=== PATIENT | female | born 1980 | race Caucasian/White ===

== ENCOUNTER 2017-02-25 19:14 | Emergency (ER) | payer OTHER ==
[2017-02-25] MEDS: ONDANSETRON 4 MG INJ IV (22:42)
[2017-02-25] MEDS: SOD CHLORIDE 0.9% 1,000 ML IV (22:42)
[2017-02-25 22:53] LABS: ADD MAN DIFF? NO
[2017-02-25 22:59] LABS: BASOPHILS % 0.3 % (0.0-2.0); EOSINOPHILS # 0.1 10^3/ul (0.0-0.5); EOSINOPHILS % 1.3 % (0.0-7.0); HEMATOCRIT 35.3 % (37.0-47.0); HEMOGLOBIN 11.7 g/dl (12.0-16.0); LYMPHOCYTES # 3.5 10^3/ul (0.8-2.9); LYMPHOCYTES % 36.5 % (15.0-51.0); MEAN CORPUSCULAR HEMOGLOBIN 28.7 pg (29.0-33.0); MEAN CORPUSCULAR HGB CONC 33.1 g/dl (32.0-37.0); MEAN CORPUSCULAR VOLUME 86.7 fl (82.0-101.0); MEAN PLATELET VOLUME 11.6 fl (7.4-10.4); MONOCYTE # 0.6 10^3/ul (0.3-0.9); MONOCYTES % 5.8 % (0.0-11.0); NEUTROPHIL # 5.3 10^3/ul (1.6-7.5); NEUTROPHILS % 55.9 % (39.0-77.0); PLATELET COUNT 265 10^3/UL (140-415); RED BLOOD COUNT 4.07 10^6/ul (4.20-5.40); RED CELL DISTRIBUTION WIDTH 13.5 % (11.5-14.5)
[2017-02-25 22:59] LABS: WHITE BLOOD COUNT 9.5 10^3/ul (4.8-10.8)
[2017-02-25 23:05] LABS: ADD UMIC NO; UR ASCORBIC ACID 40 mg/dL (NEGATIVE); UR BACTERIA FEW /HPF (NONE SEEN); UR BILIRUBIN (Dip) NEGATIVE (NEGATIVE); UR BLOOD (Dip) NEGATIVE (NEGATIVE); UR CLARITY SLIGHTLY CLOUDY (CLEAR); UR COLOR YELLOW (YELLOW); UR GLUCOSE (Dip) NEGATIVE (NEGATIVE); UR KETONES (Dip) NEGATIVE (NEGATIVE); UR LEUKOCYTE ESTERASE (Dip) NEGATIVE Leu/ul (NEGATIVE); UR MUCUS FEW /HPF (NONE SEEN); UR NITRITE (Dip) NEGATIVE (NEGATIVE); UR RBC 1 /HPF (0-5); UR SPECIFIC GRAVITY (Dip) 1.013 (1.003-1.030); UR SQUAMOUS EPITHELIAL CELL MODERATE /HPF (FEW); UR TOTAL PROTEIN (Dip) NEGATIVE (NEGATIVE); UR UROBILINOGEN (Dip) NEGATIVE (NEGATIVE); UR WBC 1 /HPF (0-5)
[2017-02-25 23:24] LABS: ALANINE AMINOTRANSFERASE 93 IU/L (13-69); ALBUMIN 4.3 g/dl (3.3-4.9); ALBUMIN/GLOBULIN RATIO 1.19; ALKALINE PHOSPHATASE 117 IU/L (42-121); ASPARTATE AMINO TRANSFERASE 51 IU/L (15-46); BILIRUBIN,INDIRECT 0.2 mg/dl (0-1.1); BILIRUBIN,TOTAL 0.2 mg/dl (0.2-1.3); BLOOD UREA NITROGEN 9 mg/dl (7-20); CARBON DIOXIDE 25 mmol/L (21-31); CHLORIDE 101 mmol/L (97-110); GLUCOSE 103 mg/dl (70-220); LIPASE 118 U/L (23-300); POTASSIUM 3.5 mmol/L (3.5-5.1); TOTAL PROTEIN 7.9 g/dl (6.1-8.1)
[2017-02-25 23:56] LABS: ANION GAP 19 (8-16); SODIUM 141 mmol/L (135-144)
[2017-02-26] MEDS: FAMOTIDINE 20 MG INJ IV (00:36)
[2017-02-26] MEDS: ACETAMINOPHEN 500 MG TAB PO (00:36)
== END 2017-02-26 00:41 | disposition home or self-care (01) ==
LOC: FTE 02-26 00:41
DX: O26.891 Other specified pregnancy related conditions, first trimester (principal); R10.13 Epigastric pain; R10.11 Right upper quadrant pain; R10.2 Pelvic and perineal pain; Z3A.10 10 weeks gestation of pregnancy
CPT/HCPCS: 36415; 76705; 76801; 80053; 81001; 81003; 83690; 84702; 85025; 86900; 86901; 96374; 96375; 99285-25

== ENCOUNTER 2017-05-03 17:34 | Outpatient (CLI) | payer OTHER ==
[2017-05-03] MEDS: LACTATED RINGER'S 1,000 ML IV (19:07)
[2017-05-03 20:03] LABS: ADD MAN DIFF? NO
[2017-05-03 20:10] LABS: WHITE BLOOD COUNT 9.5 10^3/ul (4.8-10.8)
[2017-05-03 20:10] LABS: BASOPHILS % 0.3 % (0.0-2.0); EOSINOPHILS # 0.1 10^3/ul (0.0-0.5); HEMATOCRIT 31.1 % (37.0-47.0); HEMOGLOBIN 10.3 g/dl (12.0-16.0); LYMPHOCYTES # 2.8 10^3/ul (0.8-2.9); LYMPHOCYTES % 29.5 % (15.0-51.0); MEAN CORPUSCULAR HEMOGLOBIN 29.6 pg (29.0-33.0); MEAN CORPUSCULAR HGB CONC 33.1 g/dl (32.0-37.0); MEAN CORPUSCULAR VOLUME 89.4 fl (82.0-101.0); MONOCYTE # 0.5 10^3/ul (0.3-0.9); MONOCYTES % 4.9 % (0.0-11.0); NEUTROPHIL # 6.1 10^3/ul (1.6-7.5); NEUTROPHILS % 63.9 % (39.0-77.0); PLATELET COUNT 273 10^3/UL (140-415); RED BLOOD COUNT 3.48 10^6/ul (4.20-5.40); RED CELL DISTRIBUTION WIDTH 13.9 % (11.5-14.5)
[2017-05-03 20:16] LABS: ADD UMIC YES; UR ASCORBIC ACID NEGATIVE (NEGATIVE); UR BACTERIA FEW /HPF (NONE SEEN); UR BILIRUBIN (Dip) NEGATIVE (NEGATIVE); UR BLOOD (Dip) NEGATIVE (NEGATIVE); UR CLARITY SLIGHTLY CLOUDY (CLEAR); UR COLOR YELLOW (YELLOW); UR GLUCOSE (Dip) NEGATIVE (NEGATIVE); UR KETONES (Dip) NEGATIVE (NEGATIVE); UR LEUKOCYTE ESTERASE (Dip) NEGATIVE Leu/ul (NEGATIVE); UR MUCUS FEW /HPF (NONE SEEN); UR NITRITE (Dip) NEGATIVE (NEGATIVE); UR RBC 0 /HPF (0-5); UR SPECIFIC GRAVITY (Dip) 1.033 (1.003-1.030); UR SQUAMOUS EPITHELIAL CELL MANY /HPF (FEW); UR TOTAL PROTEIN (Dip) 1+ mg/dl (NEGATIVE); UR UROBILINOGEN (Dip) 1+ mg/dL (NEGATIVE); UR WBC 2 /HPF (0-5)
[2017-05-03 20:33] LABS: ALANINE AMINOTRANSFERASE 44 IU/L (13-69); ALBUMIN 3.4 g/dl (3.3-4.9); ALBUMIN/GLOBULIN RATIO 0.97; ALKALINE PHOSPHATASE 100 IU/L (42-121); AMYLASE 50 U/L (11-123); ANION GAP 15 (8-16); ASPARTATE AMINO TRANSFERASE 31 IU/L (15-46); BILIRUBIN,INDIRECT 0.1 mg/dl (0-1.1); BILIRUBIN,TOTAL 0.1 mg/dl (0.2-1.3); BLOOD UREA NITROGEN 12 mg/dl (7-20); CALCIUM 8.9 mg/dl (8.4-10.2); CARBON DIOXIDE 22 mmol/L (21-31); CHLORIDE 106 mmol/L (97-110); GLUCOSE 106 mg/dl (70-220); LIPASE 87 U/L (23-300); POTASSIUM 3.3 mmol/L (3.5-5.1); SODIUM 140 mmol/L (135-144); TOTAL PROTEIN 6.9 g/dl (6.1-8.1)
== END 2017-05-03 23:17 | disposition home or self-care (01) ==
LOC: OBT 17:34 → L-D 17:35 → OBT 23:17
DX: O26.892 Other specified pregnancy related conditions, second trimester (principal); Z3A.20 20 weeks gestation of pregnancy; R42 Dizziness and giddiness; R19.7 Diarrhea, unspecified; M54.9 Dorsalgia, unspecified
CPT/HCPCS: 36415; 76817; 80053; 81001; 82150; 83690; 85025; 93005; 96360; 96361

== ENCOUNTER 2017-05-14 19:52 | Outpatient (CLI) | payer OTHER ==
[2017-05-14] MEDS: LACTATED RINGER'S 1,000 ML IV ×2 (21:26→22:22)
[2017-05-14] MEDS: ONDANSETRON 4 MG INJ IV (21:36)
[2017-05-14 21:44] LABS: ADD MAN DIFF? NO
[2017-05-14 21:50] LABS: BASOPHILS % 0.2 % (0.0-2.0); EOSINOPHILS # 0.1 10^3/ul (0.0-0.5); EOSINOPHILS % 1.2 % (0.0-7.0); HEMATOCRIT 29.2 % (37.0-47.0); HEMOGLOBIN 9.7 g/dl (12.0-16.0); LYMPHOCYTES # 1.7 10^3/ul (0.8-2.9); LYMPHOCYTES % 20.8 % (15.0-51.0); MEAN CORPUSCULAR HGB CONC 33.2 g/dl (32.0-37.0); MEAN CORPUSCULAR VOLUME 87.4 fl (82.0-101.0); MEAN PLATELET VOLUME 11.4 fl (7.4-10.4); MONOCYTE # 0.4 10^3/ul (0.3-0.9); MONOCYTES % 4.7 % (0.0-11.0); NEUTROPHIL # 5.8 10^3/ul (1.6-7.5); NEUTROPHILS % 72.6 % (39.0-77.0); PLATELET COUNT 248 10^3/UL (140-415); RED BLOOD COUNT 3.34 10^6/ul (4.20-5.40); RED CELL DISTRIBUTION WIDTH 13.5 % (11.5-14.5)
[2017-05-14 22:07] LABS: ADD UMIC YES; UR ASCORBIC ACID NEGATIVE (NEGATIVE); UR BACTERIA MODERATE /HPF (NONE SEEN); UR BILIRUBIN (Dip) NEGATIVE (NEGATIVE); UR BLOOD (Dip) NEGATIVE (NEGATIVE); UR CLARITY CLOUDY (CLEAR); UR COLOR YELLOW (YELLOW); UR GLUCOSE (Dip) NEGATIVE (NEGATIVE); UR KETONES (Dip) NEGATIVE (NEGATIVE); UR LEUKOCYTE ESTERASE (Dip) NEGATIVE Leu/ul (NEGATIVE); UR MUCUS FEW /HPF (NONE SEEN); UR NITRITE (Dip) NEGATIVE (NEGATIVE); UR RBC 1 /HPF (0-5); UR SPECIFIC GRAVITY (Dip) 1.014 (1.003-1.030); UR SQUAMOUS EPITHELIAL CELL MANY /HPF (FEW); UR TOTAL PROTEIN (Dip) NEGATIVE (NEGATIVE); UR UROBILINOGEN (Dip) 1+ mg/dL (NEGATIVE); UR WBC 1 /HPF (0-5)
[2017-05-14 22:14] LABS: ALANINE AMINOTRANSFERASE 37 IU/L (13-69); ALBUMIN 3.6 g/dl (3.3-4.9); ALBUMIN/GLOBULIN RATIO 0.97; ALKALINE PHOSPHATASE 124 IU/L (42-121); AMYLASE 54 U/L (11-123); ANION GAP 14 (8-16); ASPARTATE AMINO TRANSFERASE 39 IU/L (15-46); BILIRUBIN,INDIRECT 0.3 mg/dl (0-1.1); BILIRUBIN,TOTAL 0.3 mg/dl (0.2-1.3); BLOOD UREA NITROGEN 6 mg/dl (7-20); CALCIUM 8.9 mg/dl (8.4-10.2); CARBON DIOXIDE 24 mmol/L (21-31); CHLORIDE 105 mmol/L (97-110); CREATININE 0.41 mg/dl (0.44-1.00); GLUCOSE 98 mg/dl (70-220); LIPASE 57 U/L (23-300); POTASSIUM 3.3 mmol/L (3.5-5.1); SODIUM 140 mmol/L (135-144); TOTAL PROTEIN 7.3 g/dl (6.1-8.1)
== END 2017-05-15 00:17 | disposition home or self-care (01) ==
LOC: OBT 19:52 → L-D 19:53
DX: O99.612 Diseases of the digestive system complicating pregnancy, second trimester (principal); K52.89 Other specified noninfective gastroenteritis and colitis; Z3A.22 22 weeks gestation of pregnancy
CPT/HCPCS: 36415; 80053; 81001; 82150; 83690; 85025; 96360; 96361; 96374

== ENCOUNTER 2017-06-16 17:34 | Outpatient (CLI) | payer OTHER | END 2017-06-16 19:59 | disposition home or self-care (01) | LOC: OBT 17:34 → L-D 17:36 → OBT 19:59 | DX: O62.9 Abnormality of forces of labor, unspecified (principal); Z3A.27 27 weeks gestation of pregnancy | CPT/HCPCS: 76817 ==

== ENCOUNTER 2017-08-02 17:36 | Outpatient (CLI) | payer OTHER ==
[2017-08-02] MEDS: LACTATED RINGER'S 250 ML IV (18:14)
[2017-08-02 18:18] LABS: ADD MAN DIFF? NO
[2017-08-02 18:21] LABS: BASOPHILS % 0.1 % (0.0-2.0); EOSINOPHILS # 0.1 10^3/ul (0.0-0.5); EOSINOPHILS % 0.7 % (0.0-7.0); HEMATOCRIT 28.1 % (37.0-47.0); HEMOGLOBIN 9.1 g/dl (12.0-16.0); LYMPHOCYTES # 2.9 10^3/ul (0.8-2.9); LYMPHOCYTES % 33.1 % (15.0-51.0); MEAN CORPUSCULAR HGB CONC 32.4 g/dl (32.0-37.0); MEAN CORPUSCULAR VOLUME 86.5 fl (82.0-101.0); MEAN PLATELET VOLUME 11.8 fl (7.4-10.4); MONOCYTE # 0.5 10^3/ul (0.3-0.9); MONOCYTES % 5.8 % (0.0-11.0); NEUTROPHIL # 5.3 10^3/ul (1.6-7.5); PLATELET COUNT 246 10^3/UL (140-415); RED BLOOD COUNT 3.25 10^6/ul (4.20-5.40); RED CELL DISTRIBUTION WIDTH 13.2 % (11.5-14.5)
[2017-08-02 18:21] LABS: WHITE BLOOD COUNT 8.8 10^3/ul (4.8-10.8)
[2017-08-02 18:26] LABS: ADD UMIC YES; UR ASCORBIC ACID NEGATIVE (NEGATIVE); UR BACTERIA MODERATE /HPF (NONE SEEN); UR BILIRUBIN (Dip) NEGATIVE (NEGATIVE); UR BLOOD (Dip) NEGATIVE (NEGATIVE); UR CLARITY SLIGHTLY CLOUDY (CLEAR); UR COLOR YELLOW (YELLOW); UR GLUCOSE (Dip) NEGATIVE (NEGATIVE); UR KETONES (Dip) NEGATIVE (NEGATIVE); UR LEUKOCYTE ESTERASE (Dip) 1+ Leu/ul (NEGATIVE); UR NITRITE (Dip) NEGATIVE (NEGATIVE); UR RBC 0 /HPF (0-5); UR SQUAMOUS EPITHELIAL CELL MANY /HPF (FEW); UR TOTAL PROTEIN (Dip) NEGATIVE (NEGATIVE); UR UROBILINOGEN (Dip) NEGATIVE (NEGATIVE); UR WBC 2 /HPF (0-5)
[2017-08-02 18:46] LABS: ALANINE AMINOTRANSFERASE 34 IU/L (13-69); ALBUMIN 3.2 g/dl (3.3-4.9); ALBUMIN/GLOBULIN RATIO 0.88; ALKALINE PHOSPHATASE 132 IU/L (42-121); AMYLASE 63 U/L (11-123); ANION GAP 11 (8-16); ASPARTATE AMINO TRANSFERASE 32 IU/L (15-46); BILIRUBIN,INDIRECT 0.5 mg/dl (0-1.1); BILIRUBIN,TOTAL 0.5 mg/dl (0.2-1.3); BLOOD UREA NITROGEN 13 mg/dl (7-20); CALCIUM 8.5 mg/dl (8.4-10.2); CARBON DIOXIDE 24 mmol/L (21-31); CHLORIDE 110 mmol/L (97-110); CREATININE 0.67 mg/dl (0.44-1.00); GLUCOSE 98 mg/dl (70-220); LIPASE 80 U/L (23-300); POTASSIUM 3.6 mmol/L (3.5-5.1); SODIUM 141 mmol/L (135-144); TOTAL PROTEIN 6.8 g/dl (6.1-8.1)
== END 2017-08-02 20:25 | disposition home or self-care (01) ==
LOC: OBT 17:36 → L-D 17:37 → OBT 20:25
DX: O60.03 Preterm labor without delivery, third trimester (principal); O09.523 Supervision of elderly multigravida, third trimester; Z3A.33 33 weeks gestation of pregnancy
CPT/HCPCS: 36415; 76817; 80053; 81001; 82150; 83690; 85025; 96360; 96361

== ENCOUNTER 2017-08-02 20:51 | Emergency (ER) | payer OTHER ==
[2017-08-02] MEDS: ACETAMINOPHEN 500 MG TAB PO (21:38)
[2017-08-02] MEDS: SOD CHLORIDE 0.9% 1,000 ML IV (21:38)
[2017-08-02] MEDS: ONDANSETRON 4 MG INJ IV (21:38)
[2017-08-02 22:06] LABS: ADD MAN DIFF? NO
[2017-08-02 22:11] LABS: BASOPHILS % 0.2 % (0.0-2.0); EOSINOPHILS # 0.1 10^3/ul (0.0-0.5); HEMOGLOBIN 8.7 g/dl (12.0-16.0); LYMPHOCYTES % 35.2 % (15.0-51.0); MEAN CORPUSCULAR HGB CONC 32.2 g/dl (32.0-37.0); MEAN CORPUSCULAR VOLUME 86.8 fl (82.0-101.0); MONOCYTE # 0.5 10^3/ul (0.3-0.9); MONOCYTES % 5.8 % (0.0-11.0); NEUTROPHIL # 4.8 10^3/ul (1.6-7.5); NEUTROPHILS % 57.4 % (39.0-77.0); PLATELET COUNT 230 10^3/UL (140-415); RED BLOOD COUNT 3.11 10^6/ul (4.20-5.40); RED CELL DISTRIBUTION WIDTH 13.4 % (11.5-14.5)
[2017-08-02 22:11] LABS: WHITE BLOOD COUNT 8.4 10^3/ul (4.8-10.8)
[2017-08-02 22:23] LABS: ADD UMIC NO; UR ASCORBIC ACID NEGATIVE (NEGATIVE); UR BILIRUBIN (Dip) NEGATIVE (NEGATIVE); UR BLOOD (Dip) NEGATIVE (NEGATIVE); UR CLARITY CLEAR (CLEAR); UR COLOR STRAW (YELLOW); UR GLUCOSE (Dip) NEGATIVE (NEGATIVE); UR KETONES (Dip) NEGATIVE (NEGATIVE); UR LEUKOCYTE ESTERASE (Dip) NEGATIVE Leu/ul (NEGATIVE); UR NITRITE (Dip) NEGATIVE (NEGATIVE); UR SPECIFIC GRAVITY (Dip) 1.012 (1.003-1.030); UR TOTAL PROTEIN (Dip) NEGATIVE (NEGATIVE); UR UROBILINOGEN (Dip) NEGATIVE (NEGATIVE)
[2017-08-02 22:31] LABS: ALANINE AMINOTRANSFERASE 24 IU/L (13-69); ALBUMIN 3.1 g/dl (3.3-4.9); ALBUMIN/GLOBULIN RATIO 0.86; ALKALINE PHOSPHATASE 138 IU/L (42-121); ANION GAP 14 (8-16); ASPARTATE AMINO TRANSFERASE 31 IU/L (15-46); BILIRUBIN,INDIRECT 0.5 mg/dl (0-1.1); BILIRUBIN,TOTAL 0.5 mg/dl (0.2-1.3); BLOOD UREA NITROGEN 10 mg/dl (7-20); CALCIUM 8.4 mg/dl (8.4-10.2); CARBON DIOXIDE 22 mmol/L (21-31); CHLORIDE 109 mmol/L (97-110); GLUCOSE 98 mg/dl (70-220); LIPASE 81 U/L (23-300); POTASSIUM 3.5 mmol/L (3.5-5.1); SODIUM 141 mmol/L (135-144); TOTAL PROTEIN 6.7 g/dl (6.1-8.1)
== END 2017-08-02 23:05 | disposition home or self-care (01) ==
LOC: FTE 20:51
DX: O99.013 Anemia complicating pregnancy, third trimester (principal); D64.9 Anemia, unspecified; R11.0 Nausea; R51 Headache; Z3A.36 36 weeks gestation of pregnancy
CPT/HCPCS: 36415; 80053; 81003; 83690; 85025; 96374; 99284-25

== ENCOUNTER 2017-08-04 22:19 | Inpatient (IN) | payer OTHER ==
[2017-08-05 00:05] LABS: ADD MAN DIFF? NO
[2017-08-05 00:08] LABS: BASOPHILS % 0.2 % (0.0-2.0); EOSINOPHILS # 0.1 10^3/ul (0.0-0.5); EOSINOPHILS % 1.2 % (0.0-7.0); HEMATOCRIT 27.5 % (37.0-47.0); HEMOGLOBIN 8.9 g/dl (12.0-16.0); LYMPHOCYTES # 2.8 10^3/ul (0.8-2.9); LYMPHOCYTES % 32.3 % (15.0-51.0); MEAN CORPUSCULAR HEMOGLOBIN 27.8 pg (29.0-33.0); MEAN CORPUSCULAR HGB CONC 32.4 g/dl (32.0-37.0); MEAN CORPUSCULAR VOLUME 85.9 fl (82.0-101.0); MEAN PLATELET VOLUME 11.8 fl (7.4-10.4); MONOCYTE # 0.6 10^3/ul (0.3-0.9); MONOCYTES % 6.5 % (0.0-11.0); NEUTROPHIL # 5.1 10^3/ul (1.6-7.5); NEUTROPHILS % 59.5 % (39.0-77.0); PLATELET COUNT 223 10^3/UL (140-415); RED CELL DISTRIBUTION WIDTH 13.2 % (11.5-14.5)
[2017-08-05 00:08] LABS: WHITE BLOOD COUNT 8.6 10^3/ul (4.8-10.8)
[2017-08-05 00:26] LABS: ALANINE AMINOTRANSFERASE 32 IU/L (13-69); ALBUMIN 3.1 g/dl (3.3-4.9); ALBUMIN/GLOBULIN RATIO 0.91; ALKALINE PHOSPHATASE 143 IU/L (42-121); ANION GAP 12 (8-16); ASPARTATE AMINO TRANSFERASE 38 IU/L (15-46); BILIRUBIN,INDIRECT 0.5 mg/dl (0-1.1); BILIRUBIN,TOTAL 0.5 mg/dl (0.2-1.3); BLOOD UREA NITROGEN 8 mg/dl (7-20); CALCIUM 8.6 mg/dl (8.4-10.2); CARBON DIOXIDE 25 mmol/L (21-31); CHLORIDE 108 mmol/L (97-110); CREATININE 0.52 mg/dl (0.44-1.00); GLUCOSE 110 mg/dl (70-220); POTASSIUM 3.7 mmol/L (3.5-5.1); SODIUM 141 mmol/L (135-144); TOTAL PROTEIN 6.5 g/dl (6.1-8.1); URIC ACID 4.1 mg/dl (3.1-7.9)
[2017-08-05 00:28] LABS: ADD UMIC YES; UR ASCORBIC ACID NEGATIVE (NEGATIVE); UR BACTERIA MODERATE /HPF (NONE SEEN); UR BILIRUBIN (Dip) NEGATIVE (NEGATIVE); UR BLOOD (Dip) NEGATIVE (NEGATIVE); UR CLARITY SLIGHTLY CLOUDY (CLEAR); UR COLOR YELLOW (YELLOW); UR GLUCOSE (Dip) NEGATIVE (NEGATIVE); UR KETONES (Dip) NEGATIVE (NEGATIVE); UR LEUKOCYTE ESTERASE (Dip) TRACE Leu/ul (NEGATIVE); UR NITRITE (Dip) NEGATIVE (NEGATIVE); UR RBC 0 /HPF (0-5); UR SQUAMOUS EPITHELIAL CELL FEW /HPF (FEW); UR TOTAL PROTEIN (Dip) NEGATIVE (NEGATIVE); UR UROBILINOGEN (Dip) NEGATIVE (NEGATIVE); UR WBC 1 /HPF (0-5)
[2017-08-05] MEDS: BETAMET NA PHOS/AC(6 MG/ML) 5ML INJ IM (03:50)
[2017-08-05] MEDS: AL HYDROX/MG HYDROX/SIMETH 30 ML CUP PO (04:07)
[2017-08-05] MEDS: FERROUS SULFATE (EC) 325 MG TAB PO (09:43)
[2017-08-05] MEDS: PRENATAL VITAMIN PO (09:43)
[2017-08-05 12:15] LABS: ADD MAN DIFF? NO
[2017-08-05 12:19] LABS: BASOPHILS % 0.1 % (0.0-2.0); HEMATOCRIT 31.2 % (37.0-47.0); HEMOGLOBIN 9.9 g/dl (12.0-16.0); LYMPHOCYTES # 1.7 10^3/ul (0.8-2.9); LYMPHOCYTES % 20.5 % (15.0-51.0); MEAN CORPUSCULAR HEMOGLOBIN 27.5 pg (29.0-33.0); MEAN CORPUSCULAR HGB CONC 31.7 g/dl (32.0-37.0); MEAN CORPUSCULAR VOLUME 86.7 fl (82.0-101.0); MEAN PLATELET VOLUME 11.8 fl (7.4-10.4); MONOCYTE # 0.1 10^3/ul (0.3-0.9); MONOCYTES % 1.7 % (0.0-11.0); NEUTROPHIL # 6.5 10^3/ul (1.6-7.5); NEUTROPHILS % 77.1 % (39.0-77.0); PLATELET COUNT 248 10^3/UL (140-415); RED CELL DISTRIBUTION WIDTH 13.3 % (11.5-14.5)
[2017-08-05 12:19] LABS: WHITE BLOOD COUNT 8.4 10^3/ul (4.8-10.8)
[2017-08-05 12:35] LABS: ALANINE AMINOTRANSFERASE 36 IU/L (13-69); ALBUMIN 3.6 g/dl (3.3-4.9); ALBUMIN/GLOBULIN RATIO 0.92; ALKALINE PHOSPHATASE 162 IU/L (42-121); ANION GAP 12 (8-16); ASPARTATE AMINO TRANSFERASE 42 IU/L (15-46); BILIRUBIN,INDIRECT 0.7 mg/dl (0-1.1); BILIRUBIN,TOTAL 0.7 mg/dl (0.2-1.3); BLOOD UREA NITROGEN 7 mg/dl (7-20); CALCIUM 9.4 mg/dl (8.4-10.2); CARBON DIOXIDE 24 mmol/L (21-31); CHLORIDE 109 mmol/L (97-110); CREATININE 0.39 mg/dl (0.44-1.00); GLUCOSE 146 mg/dl (70-220); POTASSIUM 4.2 mmol/L (3.5-5.1); SODIUM 141 mmol/L (135-144); TOTAL PROTEIN 7.5 g/dl (6.1-8.1); URIC ACID 4.2 mg/dl (3.1-7.9)
[2017-08-05 12:38] LABS: INR 0.91; PROTIME 12.3 Sec (11.9-14.9)
[2017-08-05 12:39] LABS: PARTIAL THROMBOPLASTIN TIME 26.9 Sec (25.0-35.0)
[2017-08-05 14:58] LABS: RAPID PLASMA REAGIN NONREACTIVE (NR)
[2017-08-05] MEDS: ACETAMINOPHEN 325 MG TAB PO (22:57)
[2017-08-06 00:43] LABS: COLLECTION PERIOD 24 hrs
[2017-08-06 03:46] LABS: COLLECTION PERIOD 24 hrs; CREATININE CLEARANCE 173.2 mls/min (84.0-162.0); CREATININE,URINE RANDOM 44.21 mg/dl (20-320); SCRET 0.39 mg/dl (0.44-1.00); VOLUME 2200 ml/24hrs
[2017-08-06 03:47] LABS: VOLUME 2200 mls
[2017-08-06] MEDS: BETAMET NA PHOS/AC(6 MG/ML) 5ML INJ IM (03:51)
[2017-08-06] MEDS: PRENATAL VITAMIN PO (08:43)
[2017-08-06] MEDS: FERROUS SULFATE (EC) 325 MG TAB PO (08:43)
[2017-08-06] MEDS: AL HYDROX/MG HYDROX/SIMETH 30 ML CUP PO (14:35)
[2017-08-06] MEDS: ACETAMINOPHEN 325 MG TAB PO (17:56)
[2017-08-06] MEDS ORDERED: MAGNESIUM SULFATE 20 GM/500 ML 500 ML IV (21:00)
[2017-08-06] MEDS: MAGNESIUM SULFATE 2 GM/50 ML 50 ML IVPB (22:07)
[2017-08-06] MEDS: LACTATED RINGER'S 1,000 ML IV (22:08)
[2017-08-06] MEDS: PANTOPRAZOLE 40 MG INJ IV (22:16)
[2017-08-07] MEDS: ONDANSETRON 4 MG INJ IV (06:42)
[2017-08-07] MEDS: LACTATED RINGER'S 1,000 ML IV ×2 (06:48→16:37)
[2017-08-07] MEDS: PRENATAL VITAMIN PO (10:27)
[2017-08-07] MEDS: FERROUS SULFATE (EC) 325 MG TAB PO (10:27)
[2017-08-07] MEDS: morphine 2 MG INJ IV (10:27)
[2017-08-07] MEDS: SUMATRIPTAN 25 MG TAB PO ×2 (17:50→19:50)
[2017-08-07] MEDS: PANTOPRAZOLE 40 MG INJ IV (22:49)
[2017-08-08] MEDS: LACTATED RINGER'S 1,000 ML IV ×2 (03:55→15:45)
[2017-08-08] MEDS: PRENATAL VITAMIN PO (08:06)
[2017-08-08] MEDS: FERROUS SULFATE (EC) 325 MG TAB PO (08:06)
[2017-08-08] MEDS: morphine 2 MG INJ IV (18:08)
[2017-08-08] MEDS ORDERED: DIPHENHYDRAMINE 25 MG CAP PO (22:30)
[2017-08-08] MEDS: SUMATRIPTAN 25 MG TAB PO (22:45)
[2017-08-09] MEDS: DIPHENHYDRAMINE 25 MG CAP PO (00:11)
[2017-08-09] MEDS: LACTATED RINGER'S 1,000 ML IV ×2 (02:31→12:31)
[2017-08-09] MEDS: PANTOPRAZOLE 40 MG INJ IV (06:06)
[2017-08-09] MEDS: FERROUS SULFATE (EC) 325 MG TAB PO (08:48)
[2017-08-09] MEDS: PRENATAL VITAMIN PO (08:48)
[2017-08-09] MEDS ORDERED: morphine LIQ (10 MG/5 ML) CUP PO (14:30)
[2017-08-09] MEDS ORDERED: METHYLPREDNISOLONE 4 MG TAB PO (15:30)
[2017-08-09] MEDS: ACETAMINOPHEN 325 MG TAB PO (20:18)
[2017-08-09] MEDS: ONDANSETRON 4 MG INJ IV (20:29)
[2017-08-10] MEDS ORDERED: METHYLPREDNISOLONE 4 MG TAB PO ×5 (07:05→21:00)
[2017-08-10] MEDS: PANTOPRAZOLE 40 MG INJ IV (08:02)
[2017-08-10] MEDS: PRENATAL VITAMIN PO (08:04)
[2017-08-10] MEDS: FERROUS SULFATE (EC) 325 MG TAB PO (08:04)
[2017-08-10] MEDS: METHYLPREDNISOLONE 4 MG TAB PO ×4 (09:17→21:00)
[2017-08-10] MEDS: ONDANSETRON 4 MG INJ IV (09:40)
[2017-08-10] MEDS ORDERED: METHYLPREDNISOLONE (MEDROL) DOSE PACK PO (15:00)
[2017-08-10] MEDS: SUMATRIPTAN 25 MG TAB PO (22:46)
[2017-08-11] MEDS: DIPHENHYDRAMINE 25 MG CAP PO (00:23)
[2017-08-11] MEDS: PANTOPRAZOLE (EC) 40 MG TAB PO (07:02)
[2017-08-11] MEDS: METHYLPREDNISOLONE 4 MG TAB PO ×3 (07:05→18:18)
[2017-08-11] MEDS: FERROUS SULFATE (EC) 325 MG TAB PO (12:29)
[2017-08-11] MEDS: PRENATAL VITAMIN PO (12:29)
[2017-08-11] MEDS: ACETAMINOPHEN 325 MG TAB PO (12:29)
[2017-08-11] MEDS: ONDANSETRON 4 MG TAB PO (17:24)
[2017-08-11] MEDS: PROPRANOLOL 40 MG TAB PO (18:09)
[2017-08-11] MEDS ORDERED: METHYLPREDNISOLONE 4 MG TAB PO ×2 (21:00)
[2017-08-12] MEDS: DIPHENHYDRAMINE 25 MG CAP PO (01:03)
[2017-08-12] MEDS: FERROUS SULFATE (EC) 325 MG TAB PO (09:11)
[2017-08-12] MEDS: PANTOPRAZOLE (EC) 40 MG TAB PO (09:11)
[2017-08-12] MEDS: PRENATAL VITAMIN PO (09:11)
[2017-08-12] MEDS: ONDANSETRON 4 MG TAB PO (13:42)
[2017-08-12] MEDS: METHYLPREDNISOLONE 4 MG TAB PO (18:35)
[2017-08-12] MEDS ORDERED: METHYLPREDNISOLONE 4 MG TAB PO (21:00)
== END 2017-08-12 19:50 | disposition home or self-care (01) | DRG 781 ==
LOC: OBT 22:19 → L-D 22:20
DX: O26.893 Other specified pregnancy related conditions, third trimester (principal); Z3A.33 33 weeks gestation of pregnancy; G43.909 Migraine, unspecified, not intractable, without status migrainosus; O09.513 Supervision of elderly primigravida, third trimester
CPT/HCPCS: 36415; 70553; 76815; 76818; 80053; 81001; 82575; 84156; 84560; 85025; 85610; 85730; 86592; 86850; 86900; 86901; 87086

== ENCOUNTER 2017-08-31 18:20 | Inpatient (IN) | payer OTHER ==
[2017-08-31] MEDS: LACTATED RINGER'S 1,000 ML IV (23:11)
[2017-09-01 00:39] LABS: ADD MAN DIFF? NO
[2017-09-01 00:45] LABS: WHITE BLOOD COUNT 7.9 10^3/ul (4.8-10.8)
[2017-09-01 00:45] LABS: BASOPHILS % 0.3 % (0.0-2.0); EOSINOPHILS % 0.5 % (0.0-7.0); HEMATOCRIT 29.4 % (37.0-47.0); HEMOGLOBIN 9.3 g/dl (12.0-16.0); LYMPHOCYTES # 2.6 10^3/ul (0.8-2.9); LYMPHOCYTES % 33.1 % (15.0-51.0); MEAN CORPUSCULAR HEMOGLOBIN 27.8 pg (29.0-33.0); MEAN CORPUSCULAR HGB CONC 31.6 g/dl (32.0-37.0); MEAN CORPUSCULAR VOLUME 87.8 fl (82.0-101.0); MEAN PLATELET VOLUME 12.4 fl (7.4-10.4); MONOCYTE # 0.5 10^3/ul (0.3-0.9); MONOCYTES % 6.3 % (0.0-11.0); NEUTROPHIL # 4.7 10^3/ul (1.6-7.5); NEUTROPHILS % 59.3 % (39.0-77.0); PLATELET COUNT 228 10^3/UL (140-415); RED BLOOD COUNT 3.35 10^6/ul (4.20-5.40); RED CELL DISTRIBUTION WIDTH 16.1 % (11.5-14.5)
[2017-09-01 00:54] LABS: ADD UMIC YES; UR ASCORBIC ACID 40 mg/dL (NEGATIVE); UR BACTERIA MANY /HPF (NONE SEEN); UR BILIRUBIN (Dip) NEGATIVE (NEGATIVE); UR BLOOD (Dip) NEGATIVE (NEGATIVE); UR CLARITY TURBID (CLEAR); UR COLOR AMBER (YELLOW); UR GLUCOSE (Dip) NEGATIVE (NEGATIVE); UR KETONES (Dip) NEGATIVE (NEGATIVE); UR LEUKOCYTE ESTERASE (Dip) TRACE Leu/ul (NEGATIVE); UR MUCUS MANY /HPF (NONE SEEN); UR NITRITE (Dip) NEGATIVE (NEGATIVE); UR RBC 3 /HPF (0-5); UR SPECIFIC GRAVITY (Dip) 1.028 (1.003-1.030); UR SQUAMOUS EPITHELIAL CELL MANY /HPF (FEW); UR TOTAL PROTEIN (Dip) 1+ mg/dl (NEGATIVE); UR UROBILINOGEN (Dip) 1+ mg/dL (NEGATIVE); UR WBC 6 /HPF (0-5)
[2017-09-01] MEDS: LACTATED RINGER'S 1,000 ML IV ×4 (01:04→16:31)
[2017-09-01 01:11] LABS: ALANINE AMINOTRANSFERASE 36 IU/L (13-69); ALBUMIN 3.4 g/dl (3.3-4.9); ALBUMIN/GLOBULIN RATIO 1.06; ALKALINE PHOSPHATASE 171 IU/L (42-121); AMYLASE 50 U/L (11-123); ANION GAP 14 (8-16); ASPARTATE AMINO TRANSFERASE 39 IU/L (15-46); BILIRUBIN,INDIRECT 0.5 mg/dl (0-1.1); BILIRUBIN,TOTAL 0.5 mg/dl (0.2-1.3); BLOOD UREA NITROGEN 10 mg/dl (7-20); CALCIUM 8.4 mg/dl (8.4-10.2); CARBON DIOXIDE 23 mmol/L (21-31); CHLORIDE 106 mmol/L (97-110); CREATININE 0.46 mg/dl (0.44-1.00); GLUCOSE 104 mg/dl (70-220); LIPASE 70 U/L (23-300); POTASSIUM 3.4 mmol/L (3.5-5.1); SODIUM 140 mmol/L (135-144); TOTAL PROTEIN 6.6 g/dl (6.1-8.1); URIC ACID 5.7 mg/dl (3.1-7.9)
[2017-09-01] MEDS ORDERED: CARBOPROST 250 MCG INJ IM ×2 (03:00→17:00)
[2017-09-01] MEDS ORDERED: LACTATED RINGER'S 1,000 ML IV (03:00)
[2017-09-01] MEDS ORDERED: METHYLERGONOVINE 0.2 MG INJ IM (03:00)
[2017-09-01] MEDS ORDERED: MISOPROSTOL 200 MCG TAB PR ×2 (03:00→17:00)
[2017-09-01] MEDS ORDERED: OXYTOCIN 30 UNITS/LR 500 ML IV ×2 (03:00→17:00)
[2017-09-01 06:55] LABS: PROTIME 12.2 Sec (11.9-14.9)
[2017-09-01 06:56] LABS: PARTIAL THROMBOPLASTIN TIME 24.9 Sec (25.0-35.0)
[2017-09-01] MEDS ORDERED: PHENYLephrine (100 MCG/ML) 10ML SYG (07:00)
[2017-09-01] MEDS ORDERED: OXYTOCIN 30 UNITS/LR 500 ML BAG IV (07:00)
[2017-09-01 07:34] LABS: HEPATITIS B SURFACE ANTIGEN NEGATIVE (NEGATIVE)
[2017-09-01] MEDS ORDERED: morphine SULFATE/PF (10 MG/10 ML) INJ (11:46)
[2017-09-01] MEDS ORDERED: BUPIVACAINE 0.75%/DEXT (SPINAL) 2 ML INJ (11:46)
[2017-09-01] MEDS ORDERED: ONDANSETRON 4 MG INJ (12:37)
[2017-09-01] MEDS: CEFAZOLIN 2 GM/50 ML (PMX) 50 ML IV (12:43)
[2017-09-01] MEDS ORDERED: FENTAnyl 50 MCG/ML VIAL (12:44)
[2017-09-01] MEDS ORDERED: KETOROLAC 30 MG INJ (13:36)
[2017-09-01] MEDS: OXYTOCIN 30 UNITS/LR 500 ML IV ×2 (13:43→17:15)
[2017-09-01] MEDS ORDERED: METOCLOPRAMIDE 10 MG INJ IV (14:30)
[2017-09-01] MEDS ORDERED: FENTAnyl 50 MCG/ML VIAL IV ×3 (14:30)
[2017-09-01] MEDS ORDERED: DIPHENHYDRAMINE 50 MG INJ IV ×2 (14:30)
[2017-09-01] MEDS ORDERED: HYDROmorphONE 0.5 MG/0.5 ML SYG IV (14:30)
[2017-09-01] MEDS ORDERED: NALOXONE (0.4 MG/ML) INJ IV (14:30)
[2017-09-01] MEDS ORDERED: ONDANSETRON 4 MG INJ IV (14:30)
[2017-09-01] MEDS ORDERED: HYDROmorphONE 1 MG/5 ML IV SYRINGE IV ×3 (14:30)
[2017-09-01] MEDS: KETOROLAC 30 MG INJ IV (15:26)
[2017-09-01] MEDS: ONDANSETRON 4 MG INJ IV (15:26)
[2017-09-01] MEDS: HYDROmorphONE 0.5 MG/0.5 ML SYG IV (18:18)
[2017-09-01] MEDS: SENNA/DOCUSATE NA (8.6MG/50MG) TAB PO (20:56)
[2017-09-02] MEDS: LACTATED RINGER'S 1,000 ML IV ×3 (06:00→16:31)
[2017-09-02] MEDS: KETOROLAC 30 MG INJ IV ×2 (06:01→11:37)
[2017-09-02 10:27] LABS: ADD MAN DIFF? NO
[2017-09-02 10:36] LABS: WHITE BLOOD COUNT 9.7 10^3/ul (4.8-10.8)
[2017-09-02 10:36] LABS: ABNORMAL IP MESSAGE 1; BASOPHILS % 0.2 % (0.0-2.0); EOSINOPHILS # 0.1 10^3/ul (0.0-0.5); EOSINOPHILS % 0.5 % (0.0-7.0); HEMATOCRIT 21.1 % (37.0-47.0); LYMPHOCYTES # 2.3 10^3/ul (0.8-2.9); LYMPHOCYTES % 23.2 % (15.0-51.0); MEAN CORPUSCULAR HGB CONC 31.8 g/dl (32.0-37.0); MEAN CORPUSCULAR VOLUME 88.3 fl (82.0-101.0); MEAN PLATELET VOLUME 11.9 fl (7.4-10.4); MONOCYTE # 0.5 10^3/ul (0.3-0.9); MONOCYTES % 5.6 % (0.0-11.0); NEUTROPHIL # 6.8 10^3/ul (1.6-7.5); PLATELET COUNT 185 10^3/UL (140-415); RED BLOOD COUNT 2.39 10^6/ul (4.20-5.40); RED CELL DISTRIBUTION WIDTH 16.1 % (11.5-14.5)
[2017-09-02 10:40] LABS: POSITIVE DIFF @See below
[2017-09-02 10:45] LABS: HEMOGLOBIN 6.7 g/dl (12.0-16.0); PATH REVIEW? YES
[2017-09-02] MEDS ORDERED: MULTIVITAMINS THERAPEUTIC TAB PO (11:30)
[2017-09-02] MEDS: SENNA/DOCUSATE NA (8.6MG/50MG) TAB PO ×2 (11:36→21:20)
[2017-09-02] MEDS: IBUPROFEN 800 MG TAB PO ×2 (14:20→21:20)
[2017-09-02] MEDS: FOLIC ACID 1 MG TAB PO (14:20)
[2017-09-02] MEDS: FERROUS SULFATE 60 MG/ML 5ML CUP PO ×2 (14:20→21:20)
[2017-09-02] MEDS: MULTIVITAMINS 30 ML CUP PO (14:21)
[2017-09-02] MEDS: OXYCODONE/ACETAMINOPHEN (5/325) TAB PO (18:10)
[2017-09-02 21:55] LABS: RAPID PLASMA REAGIN NONREACTIVE (NR)
[2017-09-03] MEDS: LACTATED RINGER'S 1,000 ML IV ×3 (00:31→16:31)
[2017-09-03] MEDS: IBUPROFEN 800 MG TAB PO ×3 (05:35→21:56)
[2017-09-03] MEDS: MULTIVITAMINS 30 ML CUP PO (08:43)
[2017-09-03] MEDS: SENNA/DOCUSATE NA (8.6MG/50MG) TAB PO ×2 (08:43→21:11)
[2017-09-03] MEDS: FOLIC ACID 1 MG TAB PO (08:43)
[2017-09-03] MEDS: FERROUS SULFATE 60 MG/ML 5ML CUP PO ×3 (08:43→21:11)
[2017-09-03 08:52] LABS: ADD MAN DIFF? NO
[2017-09-03 09:04] LABS: WHITE BLOOD COUNT 11.2 10^3/ul (4.8-10.8)
[2017-09-03 09:04] LABS: ABNORMAL IP MESSAGE 1; BASOPHILS % 0.2 % (0.0-2.0); EOSINOPHILS # 0.2 10^3/ul (0.0-0.5); EOSINOPHILS % 1.4 % (0.0-7.0); HEMATOCRIT 21.5 % (37.0-47.0); LYMPHOCYTES # 2.6 10^3/ul (0.8-2.9); LYMPHOCYTES % 23.2 % (15.0-51.0); MEAN CORPUSCULAR HEMOGLOBIN 27.6 pg (29.0-33.0); MEAN CORPUSCULAR HGB CONC 30.7 g/dl (32.0-37.0); MEAN PLATELET VOLUME 11.5 fl (7.4-10.4); MONOCYTE # 0.6 10^3/ul (0.3-0.9); MONOCYTES % 5.5 % (0.0-11.0); NEUTROPHIL # 7.6 10^3/ul (1.6-7.5); NEUTROPHILS % 68.4 % (39.0-77.0); NUCLEATED RED BLOOD CELLS% 0.3 /100WBC (0.0-0.0); PLATELET COUNT 217 10^3/UL (140-415); RED BLOOD COUNT 2.39 10^6/ul (4.20-5.40); RED CELL DISTRIBUTION WIDTH 16.6 % (11.5-14.5)
[2017-09-03 09:12] LABS: POSITIVE DIFF @See below
[2017-09-03 09:15] LABS: HEMOGLOBIN 6.6 g/dl (12.0-16.0)
[2017-09-03] MEDS: OXYCODONE/ACETAMINOPHEN (5/325) TAB PO (12:15)
[2017-09-03] MEDS: LANOLIN 7 GM TUBE TOP (12:15)
[2017-09-04] MEDS: IBUPROFEN 800 MG TAB PO ×4 (06:00→21:50)
[2017-09-04] MEDS: DIPHTH/TET/ACEL PERTUSS (ADULT) 0.5 ML VIAL IM* (07:41)
[2017-09-04] MEDS: FOLIC ACID 1 MG TAB PO (08:08)
[2017-09-04] MEDS: FERROUS SULFATE 60 MG/ML 5ML CUP PO ×3 (08:08→21:50)
[2017-09-04] MEDS: SENNA/DOCUSATE NA (8.6MG/50MG) TAB PO ×2 (08:09→21:00)
[2017-09-04] MEDS: MULTIVITAMINS 30 ML CUP PO (08:09)
[2017-09-04 08:44] LABS: ADD MAN DIFF? NO
[2017-09-04 08:52] LABS: ABNORMAL IP MESSAGE 1; HEMATOCRIT 22.3 % (37.0-47.0); MEAN CORPUSCULAR HEMOGLOBIN 27.6 pg (29.0-33.0); MEAN CORPUSCULAR HGB CONC 30.5 g/dl (32.0-37.0); MEAN CORPUSCULAR VOLUME 90.7 fl (82.0-101.0); MEAN PLATELET VOLUME 11.5 fl (7.4-10.4); NUCLEATED RED BLOOD CELLS% 0.6 /100WBC (0.0-0.0); PLATELET COUNT 251 10^3/UL (140-415); RED BLOOD COUNT 2.46 10^6/ul (4.20-5.40); RED CELL DISTRIBUTION WIDTH 16.7 % (11.5-14.5)
[2017-09-04 08:52] LABS: WHITE BLOOD COUNT 10.2 10^3/ul (4.8-10.8)
[2017-09-04 09:05] LABS: HEMOGLOBIN 6.8 g/dl (12.0-16.0); POSITIVE DIFF @See below
[2017-09-04 12:02] LABS: BAND NEUTROPHILS #M 0.2 10^3/ul (0.0-0.6); BAND NEUTROPHILS % (M) 2 % (0-4); EOSINOPHILS % (M) 1 % (0-7); GIANT THROMBO% (M) 2 % (0-0); LYMPHOCYTES #M 3.1 10^3/ul (0.8-2.9); LYMPHOCYTES % (M) 31 % (15-51); MONOCYTE #M 0.1 10^3/ul (0.3-0.9); MONOCYTES % (M) 1 % (0-11); SEG NEUT #M 6.7 10^3/ul (1.6-7.5); SEGMENTED NEUTROPHILS (M) % 65 % (39-77); SMUDGE%M 1 % (0-0)
[2017-09-04] MEDS: OXYCODONE/ACETAMINOPHEN (5/325) TAB PO (19:28)
[2017-09-05] MEDS: OXYCODONE/ACETAMINOPHEN (5/325) TAB PO ×2 (03:24→07:48)
[2017-09-05] MEDS: IBUPROFEN 800 MG TAB PO (06:00)
[2017-09-05] MEDS: MULTIVITAMINS 30 ML CUP PO (08:20)
[2017-09-05] MEDS: SENNA/DOCUSATE NA (8.6MG/50MG) TAB PO (08:20)
[2017-09-05] MEDS: FERROUS SULFATE 60 MG/ML 5ML CUP PO ×2 (08:20→12:13)
[2017-09-05] MEDS: FOLIC ACID 1 MG TAB PO (08:21)
== END 2017-09-05 15:28 | disposition home or self-care (01) | DRG 766 ==
LOC: OBT 18:20 → L-D 18:21 → PP1 09-01 16:28
PROC: 10D00Z1 Extraction of Products of Conception, Low, Open Approach (ICD-10-PCS; principal; 2017-09-01 12:00)
PROC: 3E033VJ Introduction of Other Hormone into Peripheral Vein, Percutaneous Approach (ICD-10-PCS; 2017-09-01 12:00)
DX: O34.211 Maternal care for low transverse scar from previous cesarean delivery (principal); N73.6 Female pelvic peritoneal adhesions (postinfective); Z3A.37 37 weeks gestation of pregnancy; Z37.0 Single live birth
CPT/HCPCS: 36415; 80053; 81001; 82150; 83690; 84560; 85025; 85610; 85730; 86592; 86850; 86900; 86901; 87340; 96360; 96361; 99464

== ENCOUNTER 2018-06-24 22:04 | Emergency (ER) | payer OTHER ==
[2018-06-25] MEDS: SOD CHLORIDE 0.9% 1,000 ML IV (00:25)
[2018-06-25] MEDS: DIPHENHYDRAMINE 50 MG INJ IV (00:28)
[2018-06-25] MEDS: KETOROLAC 30 MG INJ IV (00:28)
[2018-06-25] MEDS: ONDANSETRON 4 MG INJ IV (00:28)
[2018-06-25 00:30] LABS: ADD MAN DIFF? NO
[2018-06-25 00:32] LABS: WHITE BLOOD COUNT 10.2 10^3/ul (4.8-10.8)
[2018-06-25 00:32] LABS: BASOPHILS % 0.4 % (0.0-2.0); EOSINOPHILS # 0.2 10^3/ul (0.0-0.5); EOSINOPHILS % 1.9 % (0.0-7.0); HEMATOCRIT 35.7 % (37.0-47.0); LYMPHOCYTES % 38.9 % (15.0-51.0); MEAN CORPUSCULAR HEMOGLOBIN 26.3 pg (29.0-33.0); MEAN CORPUSCULAR HGB CONC 30.8 g/dl (32.0-37.0); MEAN CORPUSCULAR VOLUME 85.4 fl (82.0-101.0); MEAN PLATELET VOLUME 12.3 fl (7.4-10.4); MONOCYTE # 0.7 10^3/ul (0.3-0.9); MONOCYTES % 6.4 % (0.0-11.0); NEUTROPHIL # 5.3 10^3/ul (1.6-7.5); NEUTROPHILS % 52.2 % (39.0-77.0); PLATELET COUNT 249 10^3/UL (140-415); RED BLOOD COUNT 4.18 10^6/ul (4.20-5.40); RED CELL DISTRIBUTION WIDTH 14.6 % (11.5-14.5)
[2018-06-25 00:40] LABS: ADD UMIC NO; UR ASCORBIC ACID NEGATIVE (NEGATIVE); UR BACTERIA FEW /HPF (NONE SEEN); UR BILIRUBIN (Dip) NEGATIVE (NEGATIVE); UR BLOOD (Dip) NEGATIVE (NEGATIVE); UR CLARITY SLIGHTLY CLOUDY (CLEAR); UR COLOR YELLOW (YELLOW); UR GLUCOSE (Dip) NEGATIVE (NEGATIVE); UR KETONES (Dip) NEGATIVE (NEGATIVE); UR LEUKOCYTE ESTERASE (Dip) NEGATIVE Leu/ul (NEGATIVE); UR MUCUS FEW /HPF (NONE SEEN); UR NITRITE (Dip) NEGATIVE (NEGATIVE); UR RBC 1 /HPF (0-5); UR SQUAMOUS EPITHELIAL CELL FEW /HPF (FEW); UR TOTAL PROTEIN (Dip) NEGATIVE (NEGATIVE); UR UROBILINOGEN (Dip) 1+ mg/dL (NEGATIVE); UR WBC 1 /HPF (0-5)
[2018-06-25 00:50] LABS: ANION GAP 10 (5-13); BLOOD UREA NITROGEN 15 mg/dl (7-20); CARBON DIOXIDE 28 mmol/L (21-31); CHLORIDE 105 mmol/L (97-110); CREATININE 0.58 mg/dl (0.44-1.00); Estimated GFR > 60 mL/min (>60); GLUCOSE 101 mg/dl (70-220); POTASSIUM 3.7 mmol/L (3.5-5.1); SODIUM 143 mmol/L (135-144)
== END 2018-06-25 02:05 | disposition home or self-care (01) ==
LOC: FTE 06-25 02:05
DX: R51 Headache (principal); I10 Essential (primary) hypertension; R11.2 Nausea with vomiting, unspecified; R19.7 Diarrhea, unspecified
CPT/HCPCS: 36415; 70450; 80048; 81001; 81003; 81025; 85025; 96361; 96374; 96375; 99285-25

== ENCOUNTER 2018-10-22 00:28 | Emergency (ER) | payer OTHER ==
[2018-10-22] MEDS: KETOROLAC 30 MG INJ IM (01:02)
== END 2018-10-22 01:22 | disposition home or self-care (01) ==
LOC: FTE 01:22
DX: M72.2 Plantar fascial fibromatosis (principal)
CPT/HCPCS: 81025; 96372; 99284-25